=== PATIENT | male | born 1960 | race Caucasian/White ===

== ENCOUNTER 2017-08-29 15:19 | Emergency (ER) | payer OTHER ==
[~2017-08-29] VITALS: Ht 170.2 cm; Wt 116.6 kg
[~2017-08-29 15:19] MED LIST: ALBU8.5H5 INH; ESOM40CA PO; HYDR-3237 PO; METH750T87 PO; ONDA4TAB10 PO; POLY17PO5 PO; PROM25AM6 PO
[2017-08-29 16:59] LABS: BASOPHILS # (AUTO) 0.03 x10^3/uL (0-0.1); BASOPHILS % (AUTO) 0 % (0-1); EOSINOPHILS # (AUTO) 0.14 x10^3/uL (0-0.4); EOSINOPHILS % (AUTO) 1 % (1-7); LYMPHOCYTES # (AUTO) 1.62 x10^3/uL (1-3.4); LYMPHOCYTES % (AUTO) 16 % (22-44); MD NO; MEAN CORPUSCULAR HEMOGLOBIN 32.3 pg (27.5-34.5); MEAN CORPUSCULAR HGB CONC 34.2 g/dL (33.2-36.2); MEAN CORPUSCULAR VOLUME 94.3 fL (81-97); MEAN PLATELET VOLUME 8.5 fL (7.4-10.4); MONOCYTES # (AUTO) 1.04 x10^3/uL (0.2-0.8); MONOCYTES % (AUTO) 10 % (2-9); NEUTROPHILS # (AUTO) 7.58 x10^3/uL (1.8-6.8); NEUTROPHILS % (AUTO) 73 % (42-75); PLATELET COUNT 192 x10^3/uL (130-400); RED BLOOD COUNT 4.82 x10^6/uL (4.38-5.82)
[2017-08-29] MEDS ORDERED: KETOROLAC 30 MG/1 ML IM ONE (17:00)
[2017-08-29 17:08] LABS: ALANINE AMINOTRANSFERASE 41 U/L (12-78); ALBUMIN 3.7 g/dL (3.4-5.0); ANION GAP 6 mmol/L (5-15); CALCIUM 8.2 mg/dL (8.5-10.1); CHLORIDE 107 mmol/L (98-107); CREATININE 1.38 mg/dL (0.7-1.3)
[2017-08-29 17:10] LABS: ALKALINE PHOSPHATASE 37 U/L (45-117); BILIRUBIN,TOTAL 0.5 mg/dL (0.2-1.0)
[2017-08-29] MEDS ORDERED: KETOROLAC 30 MG/1 ML ONE (17:24)
[2017-08-29 18:30] VITALS: BP 110/78
== END 2017-08-29 18:32 | disposition home or self-care (01) ==
LOC: ED 16:00
DX: S39.011A Strain of muscle, fascia and tendon of abdomen, initial encounter (principal); I10 Essential (primary) hypertension; Z87.891 Personal history of nicotine dependence; X58.XXXA Exposure to other specified factors, initial encounter; Y93.89 Activity, other specified; Y99.8 Other external cause status; Y92.89 Other specified places as the place of occurrence of the external cause
CPT/HCPCS: 36415; 74176; 80053; 83690; 85025; 96372; 99285; J1885

== ENCOUNTER 2018-04-08 13:28 | Emergency (ER) | payer OTHER ==
[~2018-04-08] VITALS: Ht 167.6 cm; Wt 109.1 kg
[2018-04-08 13:36] VITALS: BP 136/82
[2018-04-08] MEDS ORDERED: KETOROLAC 30 MG/1 ML IM ONE (14:00)
[2018-04-08] MEDS ORDERED: KETOROLAC 30 MG/1 ML ONE (14:18)
[2018-04-08] MEDS ORDERED: ACETAMINOPHEN 500 MG TABLET ONE (14:21)
[2018-04-08] MEDS ORDERED: ACETAMINOPHEN 325 MG TABLET PO ONE (14:30)
== END 2018-04-08 16:48 | disposition home or self-care (01) ==
LOC: ED 15:54
DX: S93.401A Sprain of unspecified ligament of right ankle, initial encounter (principal); X50.1XXA Overexertion from prolonged static or awkward postures, initial encounter; Y93.89 Activity, other specified; Y92.69 Other specified industrial and construction area as the place of occurrence of the external cause; Y99.8 Other external cause status
CPT/HCPCS: 99284